=== PATIENT | female | born 1995 | race Two or more races ===

== ENCOUNTER 2017-08-15 05:53 | Day surgery (SDC) | payer OTHER ==
[2017-08-15] MEDS ORDERED: LIDOCAINE 1% 2 ML INJ ID PRN (06:06)
[2017-08-15] MEDS ORDERED: LR 1,000 ML IV ONE (06:06)
[2017-08-15] MEDS ORDERED: MIDAZOLAM 2 MG/2 ML VIAL IVP ONE (07:13)
--- NOTE | 2017-08-15 07:13 | PDANEPAE ---
ANE History of Present Illness here for hysteroscopy ANE Past Medical History - Cardiovascular History Hx Hypertension: No Hx Arrhythmias: No Hx Chest Pain: No Hx Coronary Artery / Peripheral Vascular Disease: No Hx CHF / Valvular Disease: No Hx Palpitations: No - Pulmonary History Hx COPD: No Hx Asthma/Reactive Airway Disease: No Hx Recent Upper Respiratory Infection: No Hx Oxygen in Use at Home: No Hx Sleep Apnea: No Sleep Apnea Screening Result - Last Documented: Negative - Neurologic History Hx Cerebrovascular Accident: No Hx Seizures: No Hx Dementia: No - Endocrine History Hx Diabetes: No - Renal History Hx Renal Disorders: No - Liver History Hx Hepatic Disorders: No - Neurological & Psychiatric Hx Hx Neurological and Psychiatric Disorders: Yes Neurological / Psychiatric History Comment: ANXIETY. BIPOLAR - Cancer History Hx Cancer: No - Congenital Disorder History Hx Congenital Disorders: No - GI History Hx Gastrointestinal Disorders: No - Other Health History Other Health History: WEARS GLASSES - Chronic Pain History Chronic Pain: No - Surgical History Prior Surgeries: WISDOM TEETH ANE Review of Systems Review of Systems: - Exercise capacity Exercise capacity: >=4 METS METS (RN): 4 METS ANE Patient History - Allergies Allergies/Adverse Reactions: No Known Allergies Allergy (Verified 06/02/17 15:27) - Home Medications Home medications: home medication list seen and reviewed Home Medications: Lysteda 06/02/17 [Last Taken 3 Months Ago ~05/18/17] QUEtiapine FUMARATE 06/02/17 [Last Taken 1 Month Ago ~07/16/17] Ritalin 10mg (*) 06/02/17 [Last Taken 08/13/17] lamOTRIGine 06/02/17 [Last Taken 08/14/17] - NPO status NPO Status: no food or drink >8 hours NPO Since - Liquids (Date): 08/14/17 NPO Since - Liquids (Time): 23:00 NPO Since - Solids (Date): 08/14/17 NPO Since - Solids (Time): 18:30 - Smoking Hx Smoking Status: Never smoked - Family Anes Hx Family Hx Anesthesia Complications: NONE ANE Labs/Vital Signs - Vital Signs Vital Signs: reviewed preoperatively; see RN documention for details Blood Pressure: 115/86 Heart Rate: 79 Respiratory Rate: 16 O2 Sat (%): 96 Height: 154.94 cm Weight: 73.936 kg ANE Physical Exam - Airway Neck exam: FROM Mallampati Score: Class 1 - Pulmonary Pulmonary: no respiratory distress - Cardiovascular Cardiovascular: regular rate and rhythym - ASA Status ASA Status: II ANE Anesthesia Plan Anesthesia Plan: GA with mask
[2017-08-15] MEDS ORDERED: ONDANSETRON 4 MG/2 ML VIAL IVP PRN (07:14)
[2017-08-15] MEDS ORDERED: LR 500 ML IV PRN (07:14)
[2017-08-15] MEDS ORDERED: DEXAMETHASONE 4 MG/ML VIAL IVP PRN (07:14)
[2017-08-15] MEDS ORDERED: ALBUTEROL 3 ML DEYVIAL IH PRN (07:14)
[2017-08-15] MEDS ORDERED: NALOXONE HCL 0.4 MG/ML INJ IVP PRN ×2 (07:14→08:35)
[2017-08-15] MEDS ORDERED: LIDO/EPI 1% **for epidural** 30 ML SDV ONE (07:24)
[2017-08-15] MEDS ORDERED: PROPOFOL/EMULSION 500 MG/50 ML BOTTLE IV ONE (07:29)
[2017-08-15] MEDS ORDERED: fentaNYL 100 MCG/2 ML INJ ONE ×3 (07:29→08:56)
--- NOTE | 2017-08-15 07:35 | PDGENHP ---
History & Physical Chief Complaint: BLEEDING History of Present Illness: pt is a 22 year old here for rmoval of endometrial polyp for DUB Pertinent Past, Social, Family History: neg Relevant Physical Exam: 1 cm uterine polyp Cardiorespiratory Assessment: neg
[2017-08-15] MEDS ORDERED: PROPOFOL 200 MG/20 ML VIAL ONE (07:59)
--- NOTE | 2017-08-15 08:26 | POSTANESTH ---
Post Anesthetic Evaluation Cardiovascular Status: Normal, Stable Respiratory Status: Normal, Stable Level of Consciousness/Mental Status: Moderately Sleepy Pain Control: Adequate, Prn Tx Ordered Nausea/Vomiting Control: Adequate, Prn Tx Ordered Complications Possibly Related to Anesthesia: None Noted
[2017-08-15] MEDS ORDERED: ACETAMINOPHEN 500 MG TAB PO PRN (08:35)
[2017-08-15] MEDS ORDERED: HYDROCODONE/APAP 5/325 TAB PO PRN (08:35)
[2017-08-15] MEDS ORDERED: oxyCODONE IR 5 MG TAB PO PRN (08:35)
[2017-08-15] MEDS: fentaNYL 100 MCG/2 ML INJ IVP PRN ×4 (08:37→09:11)
--- NOTE | 2017-08-15 08:44 | POSTOPPROG ---
Post Op Note Date of Operation: 08/15/17 Surgeon: Karen Tee Anesthesiologist: Duncan Barrera Anesthesia: LMA Pre-op Diagnosis: DUB, polyps Post-op Diagnosis: same Indication: DUB Procedure: H/S polypectomy Findings: several polyps , thick endometrium Inf/Abcess present in the surg proc area at time of surgery?: No EBL: Minimal
[2017-08-15] MEDS ORDERED: oxyCODONE IR 5 MG TAB ONE (09:03)
--- NOTE | 2017-08-15 09:17 | GOP ---
[f rep st] OPERATIVE REPORT DATE OF OPERATION: 08/15/2017 SURGEON: Karen Tee MD ANESTHESIA: General with LMA. ANESTHESIOLOGIST: Duncan Barrera MD. PREOPERATIVE DIAGNOSIS: Dysfunctional uterine bleeding/endometrial polyps. POSTOPERATIVE DIAGNOSIS: Dysfunctional uterine bleeding/endometrial polyps. PROCEDURE PERFORMED: Hysteroscopic polypectomy. FINDINGS: Actually several polyps in the endometrium and very thick endometrial tissue throughout. Normal cervix. Normal tubal ostia. ESTIMATED BLOOD LOSS: Minimal. INDICATIONS: Patient is a 22-year-old who has an ongoing history of very heavy menstrual cycles. Sherry underwood has had a Mirena IUD placed in the past and had severe cramping on that and was removed after 2-3 w eeks. She has also tried control pills and NuvaRing and had breakthrough bleeding on both of t hose. She had an ultrasound done March 2017 and this showed a 1 cm endometrial polyp. The patient desires definitive treatment. She is on nothing for control, so we are doing this procedure a round her menstrual cycle, so we know she is not . DESCRIPTION OF PROCEDURE: With informed consent signed, patient taken to the operating room, placed under general anesthesia, placed in the low dorsal lithotomy position, prepped and draped in the usua l sterile fashion. Tenaculum placed on the anterior lip of the cervix and cervix dilated up to 5 mm. Hysteroscope placed into the uterine cavity. Normal saline as a filling medium and findings as not ed above. The [employer] TruClear miniscope blade was placed into the hysteroscope into the ut erine cavity and resection of the above tissue done without complication. Once it was felt that all the tissue had been cleaned out, the hysteroscope removed and net fluid deficit was noted to be about 300 cc, however, a lot of it was on the floor. The patient was placed in the supine position, awake sebastien in the operating room and taken to the recovery room in stable condition. Tolerated the procedur e well. COMPLICATIONS: None. /[id number]/MODL
[2017-08-15] MEDS ORDERED: ONDANSETRON 4 MG/2 ML VIAL ONE (09:36)
[2017-08-15 10:49] VITALS: BP 97/64
== END 2017-08-15 10:45 | disposition home or self-care (01) ==
LOC: FSGY 05:53
PROVIDERS: ATTEND Obstetrics & Gynecology Gynecology
PROC: 0UB98ZX Excision of Uterus, Via Natural or Artificial Opening Endoscopic, Diagnostic (ICD-10-PCS; principal; 2017-08-15 07:30)
DX: N84.0 Polyp of corpus uteri (principal); N93.8 Other specified abnormal uterine and vaginal bleeding
CPT/HCPCS: 58558; C1782; J2250; J2405; J2704; J3010

== ENCOUNTER 2018-01-01 21:23 | Emergency (ER) | payer OTHER ==
[2018-01-01] MEDS ORDERED: KETOROLAC 30 MG/1 ML SDV IVP ONE (21:43)
[2018-01-01] MEDS ORDERED: DEXAMETHASONE 10 MG/ML VIAL IVP ONE (21:43)
[2018-01-01] MEDS ORDERED: METOCLOPRAMIDE 10 MG/2 ML VIAL IVP ONE (21:43)
--- NOTE | 2018-01-01 21:43 | EDPHY ---
H & P Stated Complaint: RIOS - Personal History LMP (Females 10-55): 8-14 Days Ago Current Tetanus/Diphtheria Vaccine: Unsure Current Tetanus Diphtheria and Acellular Pertussis (TDAP): Unsure - Medical/Surgical History Hx Asthma: No Hx Chronic Respiratory Disease: No Hx Diabetes: No Hx Cardiac Disease: No Hx Renal Disease: No Hx Cirrhosis: No Hx Alcoholism: No Hx HIV/AIDS: No Hx Splenectomy or Spleen Trauma: No Other PMH: migraines bipolar ADHD hypothyroid - Social History Smoking Status: Never smoked Time Seen by Provider: 01/01/18 21:38 Constitutional: Initial Vital Signs Temperature (C) 36.8 C 01/01/18 21:24 Heart Rate 95 01/01/18 21:24 Respiratory Rate 16 01/01/18 21:24 Blood Pressure 113/85 H 01/01/18 21:24 O2 Sat (%) 97 01/01/18 21:24 O2 Delivery Mode Room Air Allergies/Adverse Reactions: No Known Allergies Allergy (Verified 06/02/17 15:27) Home Medications: Medication Instructions Recorded Lysteda 06/02/17 QUEtiapine FUMARATE 06/02/17 Ritalin 10mg (*) 06/02/17 lamOTRIGine 06/02/17 Medical Decision Making - Diagnostics Imaging Results: Imaging Impressions Head CT 01/01/18 21:44 Impression: Normal noncontrast CT of the brain. Results called to Dr. Acevedo at 10:20 PM at the time of the interpretation. ED Course/Re-evaluation: CHIEF COMPLAINT: Headache HISTORY OF PRESENT ILLNESS: Healthy 22-year-old female whose had difficulty with headaches over the last month. She is usually not a headache person. No under family has a history of eye grains her history of chronic headaches. She did see a physician at [facility] who thought she may have sinusitis. Her headache never has left completely throughout the month however has dwindled considerably. When it is very severe she gets slightly nauseated in the light bothers her eyes. Her headache usually starts on the right side behind her eye. She does not complain specifically of facial pain or frontal pain. She denies fevers or chills. She denies sore throat. She denies any trauma. She denies any neurologic problems. REVIEW OF SYSTEMS: A comprehensive 10 system review of systems is otherwise negative aside from elements mentioned in the history of present illness and medical decision making. PHYSICAL EXAM: HR, BP, O2 Sat, RR. Temp noted General Appearance: Alert, well hydrated, appropriate, and non-toxic appearing. Head: Atraumatic without scalp tenderness or obvious injury Eyes: Pupils equal, round, reactive to light and accommodation, EOMI, no trauma , no injection. Ears: Clear bilaterally, no perforation, normal landmarks Nose: Atraumatic, no rhinorrhea, clear. Throat: There is no erythema or exudates, no lesions, normal tonsils, mucus membranes moist. Neck: Supple, 2+ carotid upstroke, nontender, no lymphadenopathy. Respiratory: No retractions, no distress, no wheezes, and no accessory muscle use. Lungs are clear to auscultation bilaterally. Cardiovascular: Regular rate and rhythm, no murmurs, rubs, or gallops. Bilateral carotid, radial, dorsalis pedis, and posterior tibial pulses intact. Good capillary refill all extremities. Gastrointestinal: Abdomen is soft, nontender, non-distended, no masses, no rebound, no guarding, no peritoneal signs. Musculoskeletal: Normal active ROM of all extremities, atraumatic. Neurological: Alert, appropriate, and interactive. The patient has normal DTRs and non-focal cranial nerves, motor, sensory, and cerebellar exam. Skin: No rashes, good turgor, no nodules on palpation. Past medical history: Denies Past surgical history: None Family history: Noncontributory Social history: Student, single, does not abuse tobacco drugs or alcohol DIAGNOSTICS/PROCEDURES/CRITICAL CARE TIME: Study: CT of the head without contrast Indication: Chronic headaches over 1 month Results: CT scan of the brain was obtained. The results of the study are normal. The study was read by the radiologist, Dr. Jim Wilks. I viewed the images myself on the PACS system. DIFFERENTIAL DIAGNOSIS: The differential diagnosis for the patient's headache included but was not limited to subarachnoid hemorrhage, migraine headache, tension headache and infectious causes such as meningitis, pharyngitis and sinusitis. MEDICAL DECISION MAKING: This patient has no neurologic deficits. This patient has waxing and waning headaches throughout the month. I will do a scan to make sure there is no structural reason for this and that she does not have sinusitis. Additionally, I have given her a migraine cocktail including Reglan 10 mg, Decadron 10 mg, Toradol 30 mg. (Amadeo Daley) 10:30 p.m.- I received sign-out on this patient from Dr. Daley. I received her CT scan results of her brain which were unremarkable. She received a dose of Decadron and after this she developed some itching and was given a dose of Benadryl 25 mg with complete resolution in her symptoms. Her headache is rated at a 2/10 after medications administered. Differential diagnosis at this time includes migraine and tension type headache. I have explained this to her. Given that she has had this headache for over 1 month now, not improved with usual treatments including ibuprofen, Tylenol, Excedrin migraine, I do recommend that she follows with Neurology and I will provide her with information for this. She is happy with this plan. (Karen Acevedo) - Data Points Medications Given: Discontinued Medications Dexamethasone (Decadron Injection) 10 mg IVP EDNOW ONE Stop: 01/01/18 21:44 Last Admin: 01/01/18 22:11 Dose: 10 mg Diphenhydramine HCl (Benadryl Injection) 25 mg IVP EDNOW ONE Stop: 01/01/18 22:20 Last Admin: 01/01/18 22:21 Dose: 25 mg Ketorolac Tromethamine (Toradol) 30 mg IVP ONCE ONE Stop: 01/01/18 21:44 Last Admin: 01/01/18 22:07 Dose: 30 mg Metoclopramide HCl (Reglan Injection) 10 mg IVP EDNOW ONE Stop: 01/01/18 21:44 Last Admin: 01/01/18 22:14 Dose: 10 mg Departure - Departure Disposition: Home, Routine, Self-Care Clinical Impression: Headache Qualifiers: Headache type: unspecified Headache chronicity pattern: acute headache Intractability: not intractable Qualified Code(s): R51 - Headache Condition: Good Instructions: Acute Headache (ED) Additional Instructions: Please make sure to drink plenty of fluids and get good rest. Below is the information for Neurology, please call to schedule an appointment. Referrals: [facility] [Other] - As per Instructions Neurologists Brigida,Ben, [Medical Doctor] - As per Instructions
[2018-01-01] MEDS ORDERED: DEXAMETHASONE 4 MG/ML VIAL ONE (21:59)
[2018-01-01 22:55] VITALS: BP 100/57
== END 2018-01-01 22:55 | disposition home or self-care (01) ==
DX: R51 Headache (principal)
CPT/HCPCS: 96374; J1100; J1200; J1885; J2765